=== PATIENT | male | born 1955 | race Hispanic/Latino ===

== ENCOUNTER 2018-12-05 17:51 | Outpatient (CLI) | payer BC | END 2018-12-05 17:52 | disposition home or self-care (01) | LOC: RAD 17:51 ==

== ENCOUNTER 2019-03-08 07:59 | Inpatient (IN) | payer BC ==
[2019-03-08 08:06] VITALS: BMI 38.2
[2019-03-08] MEDS ORDERED: Sodium Chloride 0.9% 1,000 ML IV SCH (08:15)
--- NOTE | 2019-03-08 08:34 | ED PDOC ---
Arrival/HPI - General Chief Complaint: Weakness/Neurological Deficit Time Seen by Provider: 03/08/19 08:11 Historian: Patient, Spouse - History of Present Illness Narrative History of Present Illness (Text): 03/08/19 08:11 Ruperto Fletcher is a 63 year old male, with a past medical history of hypertension, hyperlipidemia, CAD s/p stents x5 , partial nephrectomy (2014), arthritis, and thyroid nodules, who presents to the emergency department complaining of left sided upper and lower extremity weakness since two days ago. Patient's spouse also notes facial droop since 7AM this morning but pt states it has been there for 2 days. Patient also notes 2 days of slurred speech. Patient informs of cardiac cath 10 days ago. Patient is on plavix. Patient takes aspirin 81 mg but denies usage today. Notes he took plavix today however. Patient does not have a neurologist. No fall or trauma. Denies vision changes. Denies headache, dizziness. Denies fevers, chills, night sweats. Denies chest pain, shortness of breath. Denies nausea, vomiting, diarrhea, or abdominal pain. Denies dysuria, hematuria. Denies back pain, neck pain. Denies diaphoresis. No other complaints. PMD: Dr. Lin Parlor Chaperone: Dr. Shaver Time/Duration: < week (2 days) Symptom Onset: Sudden Symptom Course: Unchanged Activities at Onset: Light Context: Home Past Medical History - Provider Review Nursing Documentation Reviewed: Yes - Cardiac Hx Cardiac Disorders: Yes Hx Congestive Heart Failure: Yes Hx Hypertension: Yes - Renal Hx Renal Disorder: Yes Other/Comment: had right partial nephrectomy - Psychiatric Hx Substance Use: (b) - Surgical History Hx Joint Replacement: (y; Left TKR) Other/Comment: R partial nephrectomy - Anesthesia Hx Anesthesia: Yes Hx Anesthesia Reactions: No Hx Malignant Hyperthermia: No - Suicidal Assessment Feels Threatened In Home Enviroment: No Family/Social History - Physician Review Nursing Documentation Reviewed: Yes Family/Social History: Unknown Family HX Smoking Status: Never Smoked Hx Alcohol Use: Yes Frequency of alcohol use: Socially Hx Substance Use: (b) Allergies/Home Meds Allergies/Adverse Reactions: Allergies atorvastatin Allergy (Verified 03/08/19 08:07) RASH Home Medications: Home Meds Medication Instructions Recorded Confirmed Apremilast [Otezla] 30 mg PO DAILY 03/08/19 03/08/19 Clopidogrel [Plavix] 75 mg PO DAILY 03/08/19 03/08/19 Losartan Potassium 50 mg PO DAILY 03/08/19 03/08/19 Metoprolol Succinate [Kapspargo 25 mg PO DAILY 03/08/19 03/08/19 Sprinkle] Pantoprazole Sodium [Protonix] 40 mg PO DAILY 03/08/19 03/08/19 Rosuvastatin Calcium [Crestor] 10 mg PO DAILY 03/08/19 03/08/19 Viamin D3 2,000 iu PO DAILY 03/08/19 03/08/19 Review of Systems - Physician Review All systems were reviewed & negative as marked: Yes - Review of Systems Constitutional: absent: Fevers, Night Sweats, Other (chills) Eyes: absent: Vision Changes ENT: absent: Hearing Changes, TMJ Pain, Voice Changes Respiratory: absent: SOB Cardiovascular: absent: Chest Pain Gastrointestinal: absent: Abdominal Pain, Diarrhea, Nausea, Vomiting Genitourinary Male: absent: Dysuria, Hematuria, Urinary Output Changes Musculoskeletal: absent: Back Pain, Neck Pain, Other (No fall/trauma) Neurological: Focal Weakness (left upper and lower extremity weakness ), Speech Changes, Facial Droop. absent: Headache, Dizziness Endocrine: absent: Diaphoresis Physical Exam Vital Signs Reviewed: Yes Vital Signs Temp Pulse Resp BP Pulse Ox 03/08/19 08:08 98.3 F 57 L 19 152/83 H 98 Temperature: Afebrile Blood Pressure: Normal Pulse: Bradycardic Respiratory Rate: Normal Appearance: Positive for: Well-Appearing, Non-Toxic, Comfortable Pain Distress: None Mental Status: Positive for: Alert and Oriented X 3 - Systems Exam Head: Present: Atraumatic, Normocephalic Pupils: Present: PERRL Extroacular Muscles: Present: EOMI Conjunctiva: Present: Normal Ears: Present: Normal, NORMAL TM Mouth: Present: Moist Mucous Membranes Pharnyx: Present: Normal. No: EXUDATE Nose (External): Present: Atraumatic Nose (Internal): Present: Normal Inspection Neck: Present: Normal Range of Motion. No: Meningeal Signs, MIDLINE TENDERNESS, JVD Respiratory/Chest: Present: Clear to Auscultation, Good Air Exchange. No: Respiratory Distress, Accessory Muscle Use, Wheezes, Rales, Rhonchi Cardiovascular: Present: Regular Rate and Rhythm, Normal S1, S2. No: Murmurs, Rub, Gallop Abdomen: Present: Normal Bowel Sounds. No: Tenderness, Distention, Peritoneal Signs, Rebound, Guarding Back: Present: Normal Inspection Upper Extremity: Present: Normal ROM, NORMAL PULSES, Neurovascularly Intact, Capillary Refill < 2s, Other (4/5 strength left upper extremity). No: Cyanosis, Edema Lower Extremity: Present: NORMAL PULSES, Normal ROM, Neurovascularly Intact, Capillary Refill < 2 s, Other (4/5 strength left lower extremity). No: Edema, CALF TENDERNESS, Erythema, Deformity Neurological: Present: GCS=15, Motor Func Grossly Intact, Normal Sensory Fun ction, Other (left sided facial droop). No: Speech Normal (slurred speech) Skin: Present: Warm, Dry, Normal Color. No: Rashes Psychiatric: Present: Alert, Oriented x 3, Normal Insight, Normal Concentration Medical Decision Making ED Course and Treatment: 03/08/19 08:11 Impression: Patient is a 63 year old male with a history of hypertension, hyperlipidemia, CAD s/p stents x5, and partial nephrectomy, who presents to the emergency department complaining of left upper and lower extremity weakness since two days. Patient informs taking plavix this am. Denies changes to medications besides addition of otezla. On exam; speech slurred and left sided facial droop present. 4/5 strength of left upper and lower extremities. Otherwise unremarkable. No meningeal signs. Plan: -- CT Head W/O Contrast -- EKG -- Labs -- IV Fluids -- Reassess and disposition Prior Visits: Notes and results from previous visits were reviewed. Progress Notes: EK, sinus jacquelin, no stemi 03/08/19 09:55 CT negative labs largely unremarkable appreciate consult w/ Dr. Encinas: 325 ASA, we are to place consult order w/ Dr. Asif Neuro exam remains unchanged Pt in NAD, agreeable to plan. - RAD Interpretation Radiology Orders: 03/08/19 08:11 HEAD W/O CONTRAST [CT] Stat - Medication Orders Current Medication Orders: Sodium Chloride (Sodium Chloride 0.9%) 1,000 mls @ 100 mls/hr IV .Q10H ERIC - Scribe Statement The provider has reviewed the documentation as recorded by the Scribe Jeanmarie Winn All medical record entries made by the Zechariah were at my direction and personally dictated by me. I have reviewed the chart and agree that the record accurately reflects my personal performance of the history, physical exam, medical decision making, and the department course for this patient. I have also personally directed, reviewed, and agree with the discharge instructions and disposition. Disposition/Present on Arrival - Present on Arrival Any Indicators Present on Arrival: No History of DVT/PE: No History of Uncontrolled Diabetes: No Urinary Catheter: No History of Decub. Ulcer: No History Surgical Site Infection Following: None - Disposition Have Diagnosis and Disposition been Completed?: Yes Diagnosis: Stroke Disposition Time: 09:59 Condition: STABLE Forms: [employer] (Turkmen)
[2019-03-08 08:51] LABS: BASO # 0.03 K/mm3 (0.0-2.0); BASO % 0.4 % (0.0-3.0); EOS # 0.2 (0.0-0.7); EOS % 2.8 % (1.5-5.0); HEMOGLOBIN 13.6 g/dL (14.0-18.0); LYMPH # 1.3 (1.2-3.4); LYMPH % 18.5 % (22.0-35.0); MEAN CELL VOLUME 87.6 fl (80.0-105.0); MEAN CORPUSCULAR HEMOGLOBIN 28.7 pg (25.0-35.0); MEAN CORPUSCULAR HGB CONC 32.8 g/dl (31.0-37.0); MEAN PLATELET VOLUME 10.1 fl (7.0-11.0); MONO # 0.6 (0.1-0.6); MONO % 8.3 % (1.0-6.0); RBC 4.74 10^6/uL (3.5-6.1); RED CELL DISTRIBUTION WIDTH 12.8 % (11.5-14.5); WHITE BLOOD COUNT 7.3 10^3/uL (4.5-11.0)
--- NOTE | 2019-03-08 08:55 | CT ---
Date of service: 03/08/2019 PROCEDURE: CT HEAD WITHOUT CONTRAST. HISTORY: facial droop COMPARISON: None available. TECHNIQUE: Axial computed tomography images were obtained through the head/brain without intravenous contrast. Radiation dose: Total exam DLP = 1091.79 mGy-cm. This CT exam was performed using one or more of the following dose reduction techniques: Automated exposure control, adjustment of the mA and/or kV according to patient size, and/or use of iterative reconstruction technique. FINDINGS: HEMORRHAGE: No intracranial hemorrhage. BRAIN: No mass effect or edema. No atrophy or chronic microvascular ischemic changes. VENTRICLES: Unremarkable. No hydrocephalus. CALVARIUM: Unremarkable. PARANASAL SINUSES: Unremarkable as visualized. No significant inflammatory changes. MASTOID AIR CELLS: Unremarkable as visualized. No inflammatory changes. OTHER FINDINGS: None. IMPRESSION: Normal CT of the Head.
[2019-03-08 08:57] LABS: ALB/GLOB RATIO 1.2 (1.1-1.8); ALBUMIN 4.1 g/dL (3.0-4.8); ALT/SGPT 36 U/L (7-56); AST/SGOT 32 U/L (17-59); BLOOD UREA NITROGEN 28 mg/dL (7-21); CALCIUM 9.8 mg/dL (8.4-10.5); GFR NON-AFRICAN AMERICAN > 60
[2019-03-08 09:00] LABS: INR 0.93; PARTIAL THROMBOPLASTIN TIME 30.1 Seconds (26.9-38.3); PROTHROMBIN TIME 10.5 SECONDS (9.4-12.5)
[2019-03-08 09:05] LABS: TROPONIN I < 0.01 ng/mL
--- NOTE | 2019-03-08 09:39 | CARD ---
APPROVED REPORT Date of service: 03/08/2019 EKG Measurement Heart [id number] <Conclusion> Sinus bradycardia Voltage criteria for left ventricular hypertrophy Abnormal ECG
[2019-03-08] MEDS ORDERED: Influenza Vaccine 60 mcg/0.5 mL SYR (4YR UP) IM ONE (12:46)
[2019-03-08] MEDS ORDERED: Pneumococcal 23-Valent Vaccine IM ONE (12:46)
[2019-03-08 13:04] LABS: HDL CHOLESTEROL 37 mg/dL (29-60)
--- NOTE | 2019-03-08 13:06 | MRI ---
Date of service: 03/08/2019 PROCEDURE: MRI BRAIN WITHOUT CONTRAST HISTORY: cva COMPARISON: None available. TECHNIQUE: Multiplanar, multisequence MR images of the brain were obtained without intravenous contrast enhancement. FINDINGS: HEMORRHAGE: None DWI: There is an acute 8 x 11 mm infarct to the right of midline in the wale BRAIN PARENCHYMA: No mass effect or edema. No atrophy or chronic microvascular ischemic changes. VENTRICLES: Unremarkable. No hydrocephalus. CRANIUM: Unremarkable. ORBITS: Grossly unremarkable. PARANASAL SINUSES/MASTOIDS: Clear VASCULAR SYSTEM: Skull base flow voids intact. OTHER FINDINGS: None. IMPRESSION: There is an acute 8 x 11 mm infarct to the right of midline in the wale
[2019-03-08 13:14] LABS: LDL CHOLESTEROL 110 mg/dL (0-129)
--- NOTE | 2019-03-08 13:19 | US ---
PROCEDURE: Lower carotid artery duplex ultrasound HISTORY: Carotid stenosis CVA PHYSICIAN(S): Max Miller MD. TECHNIQUE: Duplex sonography and color-flow Doppler were used to evaluate the carotid bifurcations and limited segments of the vertebral arteries bilaterally. FINDINGS: The exam is somewhat limited by tortuous vessels There is mild to moderate smooth heterogeneous plaque noted at the carotid bifurcations bilaterally. The peak systolic velocity in the proximal right internal carotid artery is 90 cm/sec. This corresponds to a 20 to 39% proximal right ICA stenosis. Normal systolic velocities are noted in the proximal right external carotid artery. There is antegrade flow in the atretic right vertebral artery. The peak systolic velocity in the proximal left internal carotid artery is 52 cm/sec. This corresponds to a 20 to 39% proximal left ICA stenosis. Normal systolic velocities are noted in the proximal left external carotid artery. There is antegrade flow in the left vertebral artery. IMPRESSION: 1. Bilateral 20-39% proximal ICA stenoses. 2. Antegrade flow in both vertebral arteries.
--- NOTE | 2019-03-08 19:44 | CON ---
DATE: 03/08/2019 NEUROLOGY CONSULTATION CHIEF COMPLAINT: Left-sided weakness and slurred speech. HISTORY OF PRESENT ILLNESS: This is a 63-year-old man with a past medical history of hypertension, hyperlipidemia, coronary artery disease, status post 5 stents, partial nephrectomy in 2014, arthritis, history of left knee replacement, who came into the emergency department presenting of left side upper and lower extremity weakness for the past 2 days and slurred speech and left facial droop. He had elevated systolic and diastolic blood pressures and found to have an acute infarction in 8 x 11 mm in the right midline of the wale, which is consistent with his symptoms. He still has some subtle left-sided weakness, which will require physical and occupational therapy and acute rehab and seems to have features of obstructive sleep apnea, which will benefit from an outpatient sleep study and possibly CPAP in the future. At this time, he will continue with aspirin 81 mg, Plavix 75 mg, and Crestor of 10 mg for stroke prevention. PAST MEDICAL HISTORY: As above. ALLERGIES: ATORVASTATIN. REVIEW OF SYSTEMS: A 14-point review of systems is negative except as per the HPI. FAMILY HISTORY: Noncontributory. MEDICATIONS: Reviewed by nurse's reconciliation sheet. SOCIAL HISTORY: No illicit drug use, smoking, or EtOH abuse. LABORATORY DATA: Sodium is 140, potassium 4.8, chloride 105, carbon dioxide 26, BUN of 28, creatinine 0.8, and random glucose of 128. PHYSICAL EXAMINATION: VITAL SIGNS: Temperature 97.7, pulse rate of 51, blood pressure of 150/84, respiratory rate 18, and oxygen saturation 97% on room air. GENERAL: The patient is seen up in bed. No acute distress. NECK: Supple. No JVD noted. Has a Mallampati score of 4. HEENT: Atraumatic and normocephalic. PERRLA. Extraocular muscles intact. HEART: S1 and S2. Normal rate and rhythm. No murmurs, rubs, or gallops. ABDOMEN: Soft, nontender, and nondistended. Bowel sounds present. EXTREMITIES: No clubbing. No cyanosis. Peripheral pulses are 2+ felt bilaterally. NEUROLOGIC: The patient is alert and orientated to person, place, month and year. Speech is fluent without any errors except for some mild dysarthria. Cranial nerves II through XII are intact except for a mild left facial nasolabial fold flatting. The rest of the cranial nerves are intact. Motor exam; has a left-sided weakness 4++ out of 5 in both upper and lower extremities on the left side, right side is intact. Toes are upgoing bilaterally. Sensory exam; light touch, pinprick, proprioception and vibration are intact. DTRs 2+ throughout. Coordination; [id number] intact. No dysmetria noted. Gait is deferred for now. IMPRESSION: A 63-year-old man with history of hypertension, hyperlipidemia, coronary artery disease, status post 5 stents, partial nephrectomy, who presented to the emergency room for left-sided upper and lower weakness, with a left facial droop and dysarthria, which is likely secondary to an acute infarction in the right midline of the wale secondary to uncontrolled hypertension and dyslipidemia. RECOMMENDATIONS: At this time; 1. Keep the systolic blood pressure to 130s to 140s and diastolic to 70s and 80s. 2. Aspirin 81 mg and Plavix 75 mg and Crestor 10 mg for stroke prevention. 3. Speech and occupational therapy and as well as physical therapy and I recommend acute rehab. 4. Outpatient sleep study to test for evaluation of sleep apnea and possible CPAP placement. 5. Weight reduction advised. Thank you for this consult. Aidan Asif MD
--- NOTE | 2019-03-09 00:24 | HP ---
DATE OF EXAM: 03/08/2019 HISTORY OF PRESENT ILLNESS: Mr. Fletcher is a 63-year-old white male with a long history of hypertension and hyperlipidemia. The patient also has a history of CAD status post stents by Dr. Oconnor. The patient has a 2- to 3-day history of vague weakness in the left lower extremity followed by weakness in the left upper extremity and some dysarthria. As such, the patient came to emergency room on day of admission complaining of same symptoms, was found on MRI to have a right wale lesion consistent with an acute cerebrovascular accident. The patient with a recent history of having catheterization by Dr. Oconnor his nitrocellulose operator and had no need for repeat stenting. REVIEW OF SYSTEMS: Cardiac: Negative for chest pain, palpitations, or shortness of breath. Respiratory: Positive only for occasional coughing and shortness of breath that has occurred over the last 2 or 3 months. Gastrointestinal: Negative for nausea, vomiting, or diarrhea. Genitourinary: Negative for frequency, urgency, or hematuria. PAST SURGICAL HISTORY: Partial nephrectomy for cancer, which has been surgically cured. SOCIAL HISTORY: The patient is a non-smoker, nondrinker. He has no recent travel history. PHYSICAL EXAMINATION GENERAL: Shows a well-developed and well-nourished white male, mildly obese, in no apparent distress. HEENT: Within normal limits. HEART: Regular sinus rhythm. No rubs or murmurs. CHEST: Carotids are without bruits. ABDOMEN: Slightly obese but benign. EXTREMITIES: Without cyanosis, clubbing, or edema. NEUROLOGIC: Shows cranial nerves II through XII are intact. The patient has mild dysarthria. He has a mild left facial droop. He has decreased strength in the left upper and left lower extremity approximately 4 to 5/5. He has a downgoing Babinski on the right and a flat Babinski on the left. His gait is mildly antalgic. Cranial nerves II through XII are within normal limits. He has no tongue deviation. His pupils equal to light and accommodation. His extraocular muscles are intact. IMPRESSION: Acute cerebrovascular accident in a hypertensive, hyperlipidemic white male with a history of coronary artery disease and a history of renal cell carcinoma. Dave Encinas MD [facility] # [id number]
[2019-03-09 06:42] LABS: HDL CHOLESTEROL 35 mg/dL (29-60)
[2019-03-09 06:53] LABS: LDL CHOLESTEROL 105 mg/dL (0-129)
[2019-03-09] MEDS: APREMILAST 30 MG PO SCH (09:21)
[2019-03-09] MEDS: Metoprolol Succinate 25 mg XL Tab PO SCH (09:22)
[2019-03-09] MEDS: Pantoprazole 40 mg EC Tab PO SCH (09:22)
--- NOTE | 2019-03-09 09:51 | CON ---
DATE OF CONSULTATION: 03/09/2019 PULMONARY CONSULTATION REASON FOR CONSULTATION: Shortness of breath. REFERRING PHYSICIAN: Dr. Encinas. HISTORY OF PRESENT ILLNESS: The patient is a 63-year-old male, with past medical history significant for coronary artery disease, status post cardiac stents x5, hypertension, hyperlipidemia, partial nephrectomy (2015), who presented to [facility] with progressive weakness of his left upper extremity and left lower extremity for 2 days. As per the emergency room notes, the patient's spouse also noted a left facial droop the morning of admission. In the emergency room, MRI of the brain was done. The MRI revealed an acute stroke to the right of the midline in the wale. The patient was thus admitted for additional evaluation. The patient is not short of breath this morning. However, he does state to occasional shortness of breath at rest, as well as occasional dyspnea on exertion for the past 3 years. In addition, the patient also complains of an occasional nonproductive cough - also for approximately 3 years. There is no history of recent chest pain, coughing up of blood, or chest pain - brought on with deep respirations. There is no history of temperatures, chills or infectious exposure. There is no history of night sweats, weight loss or appetite change prior to the above events. No history of calf pains. No history of syncope or diaphoresis. No history of recent travel or trauma.. REVIEW OF SYSTEMS: No history of nausea, vomiting or diarrhea. No acute urinary symptoms. No new musculoskeletal complaints. Rest of the review of systems is negative. ALLERGIES: ATORVASTATIN. SOCIAL HISTORY: Negative for tobacco and negative for alcohol. FAMILY HISTORY: No inheritable diseases. HOME MEDICATIONS: Include Crestor, Protonix, metoprolol, losartan, Plavix, and OtezIa. PHYSICAL EXAMINATION: GENERAL: The patient appears comfortable this morning. He is not short of breath at rest. VITAL SIGNS: Temperature is 97.8, pulse 58, respirations 18/20, blood pressure 143/81. Oxygen saturation on room air 95-97%. HEENT: Normocephalic, atraumatic. NECK: No JVD. CARDIOVASCULAR: Positive S1, S2. No S3 or gallop. LUNGS: Clear bilaterally this morning. EXTREMITIES: No clubbing, cyanosis, or edema. Calves are nontender to palpation. GASTROINTESTINAL: Abdomen is soft, nontender and nondistended. Bowel sounds are positive. SKIN: No acute rash. NEUROLOGIC: Exam is limited at the present time. PERTINENT LABORATORY DATA: Brain MRI was done on 03/08/2019. Again, there is an acute infarct noted to the right of the midline in the wale. Chest x-ray was last done on 12/05/2018 and reviewed. There is no active disease on that film. CBC: White count 7.3K, hemoglobin 13.6, hematocrit 41.5, platelets of 242,000. Complete metabolic profile: BUN 28, glucose 128. Rest of the metabolic profile is within normal limits. IMPRESSION: 1. Acute cerebrovascular accident. 2. Coronary artery disease, status post multiple cardiac stents. 3. Hypertension. 4. Questionable chronic obstructive pulmonary disease versus adult onset asthma. PLAN: The patient is a 63-year-old male with long history of coronary artery disease, status post multiple cardiac stents(5), who presents to [facility] with progressive left upper and left lower extremity weakness for the past few days. As above, in the emergency room, the also noted a left facial droop. As above, MRI was done-- which showed an acute stroke. The patient was thus admitted for additional evaluation. I did question the patient at length this morning. He has had mild pulmonary symptoms over the past 3 years. He did state to seeing my partner (Dr. Ramsey) approximately 2 years ago. Apparently, at that meeting, the patient was told he has chronic obstructive pulmonary disease. He was placed on inhalers, but never used them. I will locate the office notes when feasible. As above, the patient is a never smoker. He has no occupational exposure. On physical exam, the patient's lungs are clear this morning. In addition, the oxygen saturation on room air is 95-97%. I will order a repeat chest x-ray - last one done approximately 3 months ago. I will also order pulmonary function testing. Again, the patient has had pulmonary symptoms for the past 3 years. I will start Brovana nebulizer treatments and inhaled Pulmicort this morning. It is certainly possible that the patient does have chronic obstructive pulmonary disease, or adult onset asthma. The clinical status of this the patient is significantly improved - compared to the initial presentation. Additional pulmonary intervention will be based on the above results, as well as the clinical status of the patient. I will discuss the above with Dr. Encinas. Thank you very much for this pulmonary consultation. Jona Julian MD [facility]
--- NOTE | 2019-03-09 11:09 | RAD ---
Date of service: 03/09/2019 HISTORY: follow up COMPARISON: 12/05/2018 TECHNIQUE: Chest PA and lateral views FINDINGS: LUNGS: No active pulmonary disease. PLEURA: No significant pleural effusion identified. No pneumothorax apparent. CARDIOVASCULAR: No aortic atherosclerotic calcification present. Normal cardiac size. No pulmonary vascular congestion. OSSEOUS STRUCTURES: No significant abnormalities. VISUALIZED UPPER ABDOMEN: Normal. OTHER FINDINGS: None. IMPRESSION: No active disease.
--- NOTE | 2019-03-09 12:51 | PN ---
DATE: 03/09/2019 SUBJECTIVE: A 63-year-old white male who was admitted yesterday with acute right wale stroke with left hemiparesis and dysarthria. The patient's speech is markedly improved this morning. His left upper and have improved in strength since yesterday. PHYSICAL EXAMINATION: VITAL SIGNS: Stable. HEART: Regular sinus rhythm. CHEST: Clear to auscultation and percussion. ASSESSMENT AND PLAN: The patient does complain of some unusual shortness of breath that comes and goes. He will be evaluated by Pulmonary. Start physical therapy, occupational therapy, and speech therapy. Discussed possible transfer to [facility]. Continue antiplatelet therapy and aspirin therapy and blood pressure control. Dave Encinas MD
[2019-03-09] MEDS ORDERED: ROSUVASTATIN CALCIUM 10 MG PO SCH (17:00)
[2019-03-09] MEDS: Non Formulary Medication (Rosuvastatin Calcium [Crestor] 20 MG) PO SCH (17:12)
[2019-03-09] MEDS: Arformoterol 15 mcg/2 ml Inh Sol IH SCH (19:47)
[2019-03-09] MEDS: Budesonide 0.5 mg/2 ml Inhal Susp UD IH SCH (19:47)
[2019-03-10] MEDS: Budesonide 0.5 mg/2 ml Inhal Susp UD IH SCH ×2 (07:53→20:40)
[2019-03-10] MEDS: Arformoterol 15 mcg/2 ml Inh Sol IH SCH ×2 (07:53→20:40)
[2019-03-10 08:09] VITALS: RESP 20
[2019-03-10] MEDS: Pantoprazole 40 mg EC Tab PO SCH (09:30)
[2019-03-10] MEDS: APREMILAST 30 MG PO SCH (09:31)
[2019-03-10] MEDS: Metoprolol Succinate 25 mg XL Tab PO SCH (09:31)
--- NOTE | 2019-03-10 14:39 | PN ---
DATE: 03/10/2019 SUBJECTIVE: This is a 63-year-old white male admitted to the hospital with acute right wale CVA with left hemiparesis, dysarthria, and left facial droop. The patient is improving slowly every day, increased strength in the left lower and left upper extremity. The patient still has the left facial droop and mild dysarthria. The patient is doing physical therapy, occupational therapy, and speech therapy. The patient is seen in consultation with both blood pressure and cholesterol being controlled. The patient most likely will be discharged home in the morning to continue outpatient physical therapy, occupational therapy and speech therapy. PHYSICAL EXAMINATION: VITAL SIGNS: Stable. CHEST: Clear to auscultation and percussion. HEART: Reveals sinus rhythm. Dave Encinas MD
[2019-03-10] MEDS: Non Formulary Medication (Rosuvastatin Calcium [Crestor] 20 MG) PO SCH (17:04)
[2019-03-11] MEDS: Budesonide 0.5 mg/2 ml Inhal Susp UD IH SCH (07:33)
[2019-03-11] MEDS: Arformoterol 15 mcg/2 ml Inh Sol IH SCH (07:33)
[2019-03-11 08:34] VITALS: BP 127/75; PULSE 60; TEMP 97.8; O2SAT 97
--- NOTE | 2019-03-11 10:08 | DS ---
HOSPITAL COURSE: A 63-year-old male admitted to the hospital with left upper and left lower extremity weakness, dysarthria, facial asymmetry and facial droop. The patient was found to have a right wale lesion consistent with a hypertensive or stroke. The patient was seen in consultation with Dr. Asif and Dr. Oconnor. The patient had CAD with stents in the past. The patient's blood pressure controlled with increasing doses of losartan. The patient also had increase in his control on his cholesterol and triglycerides with antiinflammatory with an increased dose of Crestor. The patient remains on aspirin and Plavix. He started physical therapy, occupational therapy, speech therapy, he did much better. He has less facial droop today. He has new normal strength in the left upper extremity, 4 to 5/5 in the left lower extremity. He has no further dysarthria and he has no further facial droop. The patient will be discharged home in improved condition and follow with , his insurance clerk as an outpatient. The patient also have start physical therapy and speech therapy as an outpatient. The patient remained on aspirin and Plavix, losartan, Crestor and also was seen in consultation by Pulmonary Dr. Julian, and will be on a LAMA/LABA inhaler as an outpatient. FINAL DISCHARGE DIAGNOSES: The patient with acute cerebrovascular accident, left hemiparesis, history of coronary artery disease, hypercholesteremia, hypertension and adult onset asthma. Dave Encinas MD
--- NOTE | 2019-03-12 09:36 | PN ---
DATE: 03/10/2019 PULMONARY PROGRESS NOTE SUBJECTIVE: The patient was seen and examined, sitting up in chair. He states he feels better with less shortness of breath. He is receiving inhalation treatments with Brovana and budesonide. PHYSICAL EXAMINATION: VITAL SIGNS: His temperature is 98.4, blood pressure is 111/78, pulse is 88, respirations 20, pulse oximetry on room air ranges from 95% to 97%. HEENT: Head is normocephalic and atraumatic. NECK: No jugular vein distentions. CARDIOVASCULAR: S1 and S2. No S3. PULMONARY: Clear bilaterally. EXTREMITIES: No clubbing, cyanosis or edema. GASTROINTESTINAL: Soft, nontender. No organomegaly. SKIN: No acute skin rash. NEUROLOGIC: No focal deficits. ASSESSMENT: 1. Status post acute cerebrovascular accident. 2. Coronary artery disease, status post multiple stents. 3. Hypertension. 4. Chronic obstructive pulmonary disease versus adult onset asthma. PLAN: Currently, his pulmonary status is stable and improving. He is responding well to Brovana and budesonide inhalation. His neurologic status is improving as well. His oxygen saturation is good on room air. We will continue with administration of nebulizer treatments and follow closely. Ben King MD MTDD
== END 2019-03-11 09:45 | disposition home or self-care (01) | DRG 65 ==
LOC: ED 07:59 → ERH 10:00 → 3RSO 11:19
PROVIDERS: ADMIT Internal Medicine; ATTEND Internal Medicine
DX: I63.9 Cerebral infarction, unspecified (principal); G81.94 Hemiplegia, unspecified affecting left nondominant side; I11.0 Hypertensive heart disease with heart failure; I50.9 Heart failure, unspecified; R29.810 Facial weakness; R47.1 Dysarthria and anarthria; E04.2 Nontoxic multinodular goiter; I25.10 Atherosclerotic heart disease of native coronary artery without angina pectoris; E78.00 Pure hypercholesterolemia, unspecified; E78.5 Hyperlipidemia, unspecified; J44.9 Chronic obstructive pulmonary disease, unspecified; M19.90 Unspecified osteoarthritis, unspecified site; Z96.652 Presence of left artificial knee joint; Z90.5 Acquired absence of kidney; Z85.528 Personal history of other malignant neoplasm of kidney; Z79.82 Long term (current) use of aspirin; Z79.02 Long term (current) use of antithrombotics/antiplatelets; Z95.5 Presence of coronary angioplasty implant and graft